=== PATIENT | female | born 1935 | race Caucasian/White ===

== ENCOUNTER 2016-08-02 23:07 | Emergency (ER) | payer OTHER ==
[2016-08-02] MEDS ORDERED: NS 1,000 ML IV ONE (23:13)
--- NOTE | 2016-08-02 23:27 | CPEKG ---
Heart Rate: 88 RR Interval: 682 QRSD Interval: 74 QT Interval: 344 QTC Interval: 417 QRS Morris: 45 T Wave Morris: 36 EKG Severity - ABNORMAL ECG - EKG Impression: ATRIAL FIBRILLATION, V-RATE 78-101 Electronically Signed By: Yassine Mayen 03-Aug-2016 17:38:11
[2016-08-02 23:28] LABS: % IMMATURE GRANULYOCYTES 0.3 % (0.0-1.1); ABSOLUTE IMMATURE GRANULOCYTES 0.02 10^3/uL (0.00-0.10); ADD DIFF? NO; ADD MORPH? NO; ADD SCAN? NO; ATYPICAL LYMPHOCYTE FLAG 20 (0-99); FRAGMENT RBC FLAG 0 (0-99); HEMATOCRIT 37.7 % (38.0-47.0); HEMOGLOBIN 12.6 g/dL (12.6-16.3); LEFT SHIFT FLG 0 (0-99); LIPEMIA HEMOLYSIS FLAG 80 (0-99); MEAN CELL HEMOGLOBIN 30.9 pg (27.9-34.1); MEAN CELL HEMOGLOBIN CONCENTR. 33.4 g/dL (32.4-36.7); MEAN CELL VOLUME 92.4 fL (81.5-99.8); PLATELET CLUMPS FLAG 0 (0-99); PLATELET COUNT 345 10^3/uL (150-400); RED BLOOD CELL COUNT 4.08 10^6/uL (4.18-5.33); RED CELL DISTRIBUTION WIDTH 14.6 % (11.5-15.2)
--- NOTE | 2016-08-02 23:33 | EDPHY ---
H & P HPI/ROS: CHIEF COMPLAINT: Fall, found down HISTORY OF PRESENT ILLNESS: patient arrived by EMS and this is seen at time of arrival. EMS reports that the patient was found down, unconscious on the floor. There is no known duration of time down. The patient's family member reportedly found her. EMS reports that they suspected family member was intoxicated at the time. The patient is awake and conversing appropriately. She has advanced dementia and has no recollection of the events. She is complaining of mild headache and left shoulder pain. She has no chest pain. No abdominal pain. She complains of no injuries to the limbs. EMS reports that she was on warfarin until last week due to GI bleed, but has not been taking over the past week reportedly. No way to obtain any other information as the daughter is not here and the patient has advanced dementia. She did not list any other complaints at this time. REVIEW OF SYSTEMS: Ten systems reviewed and are negative unless otherwise noted in the HPI EXAMINATION General Appearance: Alert, thin,no distress Head: normocephalic, atraumatic , no hematoma. No depression no deformities Eyes: Pupils equal and round, no conjunctival pallor or injection. Bilateral arcus senilis ENT, Mouth: Mucous membranes moist Neck: C-collar in place prior to arrival. Remains in place during examination. Respiratory: Lungs are clear to auscultation Cardiovascular: Irregularly irregular. Pulses intact distally with DP and PT symmetric Gastrointestinal: Abdomen is soft and nontender Back: non-tender, no bony abnormalities Neurological: alert to person. Disoriented to time and place. No focal deficits Skin: Warm and dry, no rash, various stages of contusions Extremities: Nontender, no pedal edema Psychiatric: Mood and affect normal DIFFERENTIAL DIAGNOSES: Including but not limited to syncope, mechanical fall, rhabdo, intracranial injury, closed head injury, atrial fibrillation, dysrhythmia, weakness MDM: 23:30 89-year-old Alzheimer dementia patient arrived by EMS. She was seen at time of arrival. She was hemodynamically stable. Given her advanced dementia, she is unable to provide any information to us. She is normotensive. She is conversing with us expectantly given her baseline dementia. She does complain of a mild headache and left shoulder pain. CT scans of the head and C-spine were ordered stat given the warfarin she was taking last week. Additionally I have ordered a chest x-ray, pelvis x-ray, left shoulder film. Labs are pending at this time. The I-STAT that was performed is within normal limits. 00:05 Notified by radiologist that the CT scan of the head reveals degenerative changes with atrophy but no acute findings. The CT of the cervical spine reveals previous hardware intact but no acute findings. X-rays of the chest, pelvis and left shoulder also did not reveal any acute findings. The patient remains awake. She is alert to person only but is in no acute distress. Vital signs remained stable. Laboratory studies are within acceptable limits given her age and comorbidities. We are currently attempting to determine the safety of return her back to her home. We are awaiting to speak with family members to determine this. 0100 Patient remains hemodynamically stable at this time and in no acute distress. We are awaiting arrival of her family to determine final disposition. Please see Dr. San's note for final disposition. EKG: Interpreted by Dr. San. Atrial fibrillation with rate 80-100. There is no acute ischemia. SUPERVISION: Patient was evaluated in conjunction with the supervising physician. Please see their note for details. (Todd Carlos) Constitutional: Initial Vital Signs Temperature (C) 36.8 C 08/02/16 23:20 Heart Rate 93 08/02/16 23:20 Respiratory Rate 20 08/02/16 23:20 Blood Pressure 118/81 H 08/02/16 23:20 O2 Sat (%) 94 08/02/16 23:20 O2 Delivery Mode Room Air Allergies/Adverse Reactions: No Known Allergies Allergy (Unverified 08/02/16 23:25) Home Medications: Medication Instructions Recorded Digoxin 08/02/16 Digoxin 08/02/16 Furosemide 08/02/16 Potassium 08/02/16 Warfarin Sodium 08/02/16 Medical Decision Making ED Course/Re-evaluation: 3:00 a.m.- The patient has now been medically evaluated and does not appear to have suffered any significant injury from her fall. We have tried to reach the patient's daughter without much lock. Because of her dementia she cannot be discharged home without someone to meet her or to pick her up. 7:20 a.m.- The patient has been able to rest comfortably throughout the rest of my shift. Her daughter arrived and feels comfortable taking her home. She was discharged from the acute rehab facility and is awaiting placement at a memory care unit. The patient's family is working with her insurance company to try to find a place for her to go. The daughter has resources including a social media intern that is assisting her with this. The patient will be discharged home at this time. ( Holly San) Other Provider: ED PA DICTATION I evaluated and participated in the management of the patient. I also evaluated the patient independently. My co-signature indicates that I have reviewed this chart and I agree with the findings and plan of care as documented. My personal H&P findings include: This is a 80-year-old female with dementia who was found on the ground of her home by her daughter who was intoxicated. The patient is unable to provide much history as to the circumstances surrounding her fall. She is had CT scans of her head and neck and other x-rays. Her labs have been checked and are unremarkable. She does not appear to have suffered any injuries from her fall. (Holly San) - Data Points Laboratory Results: Laboratory Results 08/02/16 23:15 08/02/16 23:15 08/03/16 08/02/16 08/02/16 00:20 23:15 23:12 WBC 7.36 10^3/uL (3.80-9.50) RBC 4.08 L 10^6/uL (4.18-5.33) Hgb 12.6 g/dL (12.6-16.3) POC Hgb 13.6 gm/dL (12.3-15.9) Hct 37.7 L % (38.0-47.0) POC Hct 40 % (35.5-47.5) MCV 92.4 fL (81.5-99.8) MCH 30.9 pg (27.9-34.1) MCHC 33.4 g/dL (32.4-36.7) RDW 14.6 % (11.5-15.2) Plt Count 345 10^3/uL (150-400) MPV 9.0 fL (8.7-11.7) Neut % (Auto) 67.2 % (39.3-74.2) Lymph % (Auto) 16.6 % (15.0-45.0) [place] % (Auto) 13.6 H % (4.5-13.0) Eos % (Auto) 1.6 % (0.6-7.6) Baso % (Auto) 0.7 % (0.3-1.7) Nucleat RBC Rel Count 0.0 % (0.0-0.2) Absolute Neuts (auto) 4.95 10^3/uL (1.70-6.50) Absolute Lymphs (auto) 1.22 10^3/uL (1.00-3.00) Absolute Monos (auto) 1.00 H 10^3/uL (0.30-0.80) Absolute Eos (auto) 0.12 10^3/uL (0.03-0.40) Absolute Basos (auto) 0.05 10^3/uL (0.02-0.10) Absolute Nucleated RBC 0.00 10^3/uL (0-0.01) Immature Gran % 0.3 % (0.0-1.1) Immature Gran # 0.02 10^3/uL (0.00-0.10) PT 14.6 SEC (12.0-15.0) INR 1.15 (0.83-1.16) APTT 26.7 SEC (23.0-38.0) POC Sodium 141 mEq/L (134-144) Sodium 138 mEq/L (134-144) POC Potassium 3.8 mEq/L (3.3-5.0) Potassium 4.0 mEq/L (3.5-5.2) POC Chloride 100 mEq/L (96-108) Chloride 100 mEq/L (97-110) Carbon Dioxide 29 mEq/l (22-31) Anion Gap 9 mEq/L (8-16) POC BUN 19 mg/dL (7-23) BUN 19 mg/dL (7-23) Creatinine 0.5 L mg/dL (0.6-1.0) POC Creatinine 0.5 L mg/dL (0.6-1.2) Estimated GFR > 60 Glucose 98 mg/dL (70-100) POC Glucose 102 H mg/dL (70-100) Calcium 9.2 mg/dL (8.5-10.4) Total Bilirubin 0.5 mg/dL (0.1-1.4) Conjugated Bilirubin 0.2 mg/dL (0.0-0.5) Unconjugated Bilirubin 0.3 mg/dL (0.0-1.1) AST 25 IU/L (14-46) ALT 33 IU/L (9-52) Alkaline Phosphatase 94 IU/L (38-126) Creatine Kinase 54 IU/L (0-156) Total Protein 6.2 L g/dL (6.3-8.2) Albumin 3.4 L g/dL (3.5-5.0) Urine Color COLORLESS Urine Appearance CLEAR Urine pH 7.0 (5.0-7.5) Ur Specific [place] 1.003 (1.002-1.030) Urine Protein NEGATIVE (NEGATIVE) Urine Ketones NEGATIVE (NEGATIVE) Urine Blood NEGATIVE (NEGATIVE) Urine Nitrate NEGATIVE (NEGATIVE) Urine Bilirubin NEGATIVE (NEGATIVE) Urine Urobilinogen NEGATIVE EU (0.2-1.0) Ur Leukocyte Esterase TRACE H (NEGATIVE) Urine RBC 10-15 H /hpf (0-3) Urine WBC 1-3 /hpf (0-3) Ur Epithelial Cells TRACE /lpf (NONE-1+) Urine Bacteria TRACE H /hpf (NONE SEEN) Ur Culture Indicated? INDICATED H (NI) Urine Glucose NEGATIVE (NEGATIVE) Medications Given: Discontinued Medications Sodium Chloride (Ns) 1,000 mls @ 0 mls/hr IV EDNOW ONE PRN Reason: Wide Open Stop: 08/02/16 23:14 Last Admin: 08/02/16 23:20 Dose: 1,000 mls Point of Care Test Results: 08/02/16 23:12 POC Sodium 141 POC Potassium 3.8 POC Chloride 100 POC BUN 19 POC Creatinine 0.5 L POC Glucose 102 H Departure - Departure Disposition: Home, Routine, Self-Care Clinical Impression: A-fib Qualifiers: Atrial fibrillation type: chronic Qualifier Code: (I48.2) Chronic atrial fibrillation Fall Qualifiers: Encounter type: initial encounter Qualifier Code: (W19.XXXA) Unspecified fall, initial encounter Chronic dementia Qualifiers: Dementia behavioral disturbance: without behavioral disturbance Qualifier Code : (F03.90) Unspecified dementia without behavioral disturbance Shoulder contusion Qualifiers: Encounter type: initial encounter Laterality: left Qualifier Code: (S40.012A) Contusion of left shoulder, initial encounter Condition: Good Instructions: Fall Prevention for Older Adults (ED) Referrals: Richard Darden MD [Medical Doctor] - 2-3 days, call for appt.
[2016-08-02 23:36] LABS: INR 1.15 (0.83-1.16); PROTIME(PATIENT) 14.6 SEC (12.0-15.0)
[2016-08-02 23:37] LABS: APTT 26.7 SEC (23.0-38.0)
[2016-08-02 23:38] LABS: ALANINE AMINOTRANSFERASE 33 IU/L (9-52); ALBUMIN 3.4 g/dL (3.5-5.0); ALKALINE PHOSPHATASE 94 IU/L (38-126); ANION GAP 9 mEq/L (8-16); ASPARTATE AMINOTRANSFERASE 25 IU/L (14-46); BILIRUBIN,TOTAL 0.5 mg/dL (0.1-1.4); BILIRUBIN-CONJUGATED 0.2 mg/dL (0.0-0.5); BILIRUBIN-UNCONJUGATED 0.3 mg/dL (0.0-1.1); CALCIUM 9.2 mg/dL (8.5-10.4); CARBON DIOXIDE 29 mEq/l (22-31); CHLORIDE 100 mEq/L (97-110); CREATININE 0.5 mg/dL (0.6-1.0); GLOMERULAR FILTRATION RATE > 60; GLUCOSE 98 mg/dL (70-100); SODIUM 138 mEq/L (134-144); TOTAL PROTEIN 6.2 g/dL (6.3-8.2)
--- NOTE | 2016-08-02 23:58 | CT ---
CT Brain (Without Contrast) 2334 hours History: Trauma, found down, altered mental status. Comparison: None. Technique: Axial computed tomographic images of the brain without contrast. Dose reduction techniques were utilized. Findings: Ventricles, cisterns, and sulci are widened consistent with atrophy. No hydrocephalus, mid line shift/herniation, or epidural/subdural hematomas. No acute intraparenchymal hemorrhage or mass e ffect. Cerebrovascular atherosclerosis. Hypodensities in the white matter of bilateral cerebral hemis pheres. Bone windows demonstrate no displaced fractures. Paranasal sinuses and mastoid air cells are clear. Impression: 1. Moderate atrophy. 2. No acute hemorrhage, hydrocephalus, or mass effect. 3. Cerebrovascular atherosclerosis. 4. No definite acute infarct. 5. Moderate microvascular ischemic gliosis. 6. No epidural or subdural hematoma. Findings and recommendations discussed with Emergency Department physician, Todd Carlos PA-C, at 23 45 hours today. Final report concurs with initial preliminary interpretation.
--- NOTE | 2016-08-03 00:04 | CT ---
CT Scan of the Cervical Spine (Without Contrast) (With Multiplanar Reconstructions) 2334 hours Clinical Indications: Trauma, found down, altered mental status Technique: Thinly collimated multidetector helical CT imaging of the cervical spine was reviewed in multiple planes. Multiplanar reconstructions reviewed on [employer] workstation and performed to better e valuate alignment. Dose reduction techniques were utilized. Findings: No definite acute cervical spine fracture. bilateral C1 and right C2 transpedicular screws appear intact. No acute odontoid fracture. No acute cervical compression fracture. Spinous processes appear intact. C2-C3 demonstrates no significant central canal or neural foraminal stenosis C3-C4 degenerative grade 1 anterolisthesis resulting in mild central canal stenosis without neural fo raminal stenosis. C4-C5 severe degenerative disk disease with degenerative retrolisthesis and moderate right facet arth ropathy resulting in moderate central canal stenosis and moderate to severe right neural foraminal st enosis. C5-C6 severe degenerative disk disease, degenerative retrolisthesis, dorsal disk/osteophyte complex a nd bilateral uncovertebral osteophytes, right greater than left resulting in moderate to severe centr al canal stenosis and right neural foraminal stenosis. C6-C7 severe degenerative disk disease and dorsal disk/osteophyte complex resulting in moderate to se francia central canal stenosis and right uncovertebral osteophytes resulting in moderate to severe right neural foraminal stenosis. C7-T1 degenerative grade 1 anterolisthesis and mild bilateral facet arthropathy resulting in mild kari ateral neural foraminal stenosis without central canal stenosis. Impression: 1. No definite fracture. 2. C1-C2 hardware appears intact without acute fracture. 3. Multilevel severe degenerative disk disease and degenerative spondylolisthesis from C3-C4 through C6-C7 resulting in moderate to severe central canal stenosis at C4-C5, C5-C6, C6-C7, and moderate to severe right neural foraminal stenosis. 4. Consider MRI cervical spine if clinically indicated. Findings and recommendations discussed with Emergency Department physician, Todd Carlos PA-C, at 23 45 hours today. Final report concurs with initial preliminary interpretation.
--- NOTE | 2016-08-03 00:06 | DX ---
Chest, Two Views 2311 hours History: Fall, altered mental status. Comparison: None. Findings: Cardiac silhouette is mildly enlarged with atherosclerotic tortuous aorta. Surgical clips left axillary region. No pneumonia, congestive heart failure, pleural effusion, or pneumothorax. Impression: 1. Cardiomegaly and atherosclerotic aorta. 2. No pneumothorax. 3. No definite pneumonia.
--- NOTE | 2016-08-03 00:07 | DX ---
Single view pelvis History: Fall, pain Findings: Pelvic bones appear intact without definite displaced fracture. Limited aeration of the sac rum. No definite proximal femur fractures. Moderate degenerative disk disease at L3-L4 and L4-L5 with vacuum disk phenomena. Impression: No definite pelvic fracture.
--- NOTE | 2016-08-03 00:08 | DX ---
Left shoulder, 3 views History: Fall. Trauma, pain. Findings: No acute fracture or dislocation identified. Left humeral head and neck demonstrate no defi nite acute fracture. No evidence of left clavicle fracture. No definite left scapular fracture. Surgi helen clips in the left axillary region. Impression: 1. No definite acute fracture. 2. Recommend additional imaging if symptoms persist, if clinically indicated.
[2016-08-03 00:50] LABS: COLOR COLORLESS; LEUKOCYTE ESTERASE,URINE TRACE (NEGATIVE); NITRITE,URINE NEGATIVE (NEGATIVE)
[2016-08-03 00:51] LABS: BACTERIA TRACE /hpf (NONE SEEN)
[2016-08-03 03:04] VITALS: RESP 16
[2016-08-03 07:41] VITALS: BP 134/74; PULSE 79; TEMP 97.9; O2SAT 93
== END 2016-08-03 07:41 | disposition home or self-care (01) ==
LOC: EDBD 23:07
DX: S40.012A Contusion of left shoulder, initial encounter (principal); I48.2 Chronic atrial fibrillation; F03.90 Unspecified dementia, unspecified severity, without behavioral disturbance, psychotic disturbance, mood disturbance, and anxiety; W18.39XA Other fall on same level, initial encounter
CPT/HCPCS: 82947-QW